=== PATIENT | male | born 1985 | race Native Hawaiian/Other Pacific Islander ===

== ENCOUNTER 2017-09-03 11:28 | Inpatient (IN) | payer OTHER ==
[~2017-09-03] VITALS: Ht 167.6 cm; Wt 74.5 kg
[2017-09-03 11:30] VITALS: BP 142/85; PULSE 93; RESP 14; TEMP 98.6; O2SAT 98
[2017-09-03] MEDS ORDERED: SODIUM CHLOR 0.9% 1000 ML INJ 1,000 ML IV ONE (12:09)
[2017-09-03] MEDS ORDERED: ONDANSETRON HCL 4 MG/2 ML VIAL IVP ONE (12:15)
[2017-09-03] MEDS ORDERED: MORPHINE SULFATE 4 MG/ML INJ IV PUSH ONE (12:15)
[2017-09-03] MEDS ORDERED: SODIUM CHLORIDE 0.9% FLUSH 10 ML FLUSH IVF PRN (12:15)
--- NOTE | 2017-09-03 12:16 | PD ---
HPI Chief Complaint: Syncope/Near-Syncope Time Seen by Provider: 11:59 Travel History International Travel<30 days: No Contact w/Intl Traveler<30days: No Traveled to known affect area: No History of Present Illness HPI 5-year-old male presents to the emergency department with complaint of right- sided headache, vomiting, neck pain after a syncopal episode at approximately 3 AM this morning. Cervical collar was placed in triage. Says he fell and hit the right side of his head and had continued loss of consciousness. Pain is left-sided. Has vomited 5 times. Reports right ear pain. Denies change in vision. Denies confusion, disorientation, change in mentation, slurred speech, focal deficits or weakness. Denies illicit drug use or alcohol use. Denies chest pain, shortness of breath, abdominal pain. Rates the pain 9/10. Describes it as a shooting pain. Has not taken any medication or trigon treatments to alleviate symptoms. No known relieving or aggravating factors. No known allergies. Primary care provider is in [facility]. Denies significant past medical history. Has no other medical complaints. No other modifying factors or associated signs and symptoms. [facility] Past Medical History Medical History: Denies Significant Hx Tetanus Vaccination: Unknown Influenza Vaccination: No Social History Alcohol Use: No Tobacco Use: No Substance Use: No Allergies-Medications (Allergen,Severity, Reaction): Coded Allergies: No Known Allergies (Unverified , 09/03/17) Reported Meds & Prescriptions Reported Meds & Active Scripts Active No Active Prescriptions or Reported Medications Review of Systems Except as stated in HPI: all other systems reviewed are Neg Physical Exam Narrative GENERAL: Well-nourished, well-developed male patient, in no acute distress SKIN: Warm and dry. HEAD: Atraumatic. Normocephalic. No facial or scalp abrasions or lacerations noted. No facial droop noted. Tetanus midline. Finger to nose test normal. EYES: Pupils equal and round at 3 mm with brisk reaction. EOMI. PERRLA. No scleral icterus. No injection or drainage. No raccoon eyes. ENT: Mucosa pink and moist. No erythema or exudates. No uvular edema. No uvular , palatal, or tonsillar deviation. Airway patent. Nares without nasal blood, purulent drainage or septal hematoma. No rhinorrhea. EARS: Bilateral pinnae and external canals appear within normal limits. Bilateral tympanic membranes without erythema, dullness, or perforation. Right hemotympanum noted; without perforation. No otorrhea. No guzman signs. NECK: Cervical collar in place: Remove for physical exam and discontinued. No midline tenderness on palpation of the cervical spine. Active rotation of the neck greater than 45 the left and right. Reproducible tenderness to the left lateral musculature of the neck. Trachea midline. No lymphadenopathy. No obvious deformities. CHEST: No retractions or use of accessory muscles. CARDIOVASCULAR: Regular rate and rhythm. No murmur appreciated. RESPIRATORY: No accessory muscle use. Clear to auscultation. Breath sounds equal bilaterally. GASTROINTESTINAL: Abdomen soft, non-tender, nondistended. Hepatic and splenic margins not palpable. Bowel sounds are active 4 quadrants. MUSCULOSKELETAL: No obvious deformities. No clubbing. No cyanosis. No edema. BACK: No midline Point tenderness on palpation of the lumbar or thoracic spine. No obvious deformities. Patient sitting up in bed at 90. NEUROLOGICAL: Awake and alert. Oriented 4. No obvious cranial nerve deficits. Motor grossly within normal limits. Normal speech. No midline drift. No ataxia. No upper or lower extremity drift. Moves all extremities. 5/5 strength to all extremities. Sensory intact. PSYCHIATRIC: Appropriate mood and affect; insight and judgment normal. Data Data Last Documented VS Vital Signs Date Time Temp Pulse Resp B/P (MAP) Pulse Ox O2 Delivery O2 Flow Rate FiO2 09/03/17 13:09 90 19 130/74 (92) 97 Room Air 09/03/17 11:30 98.6 Orders Orders Electrocardiogram (09/03/17 12:09) Basic Metabolic Panel (Bmp) (09/03/17 12:09) Complete Blood Count With Diff (09/03/17 12:09) Act Partial Throm Time (Ptt) (09/03/17 12:09) Prothrombin Time / Inr (Pt) (09/03/17 12:09) Ct Brain W/O Iv Contrast(Rout) (09/03/17 12:09) Ecg Monitoring (09/03/17 12:09) Iv Access Insert/Monitor (09/03/17 12:09) Oximetry (09/03/17 12:09) Sodium Chloride 0.9% Flush (Ns Flush) (09/03/17 12:15) Sodium Chlor 0.9% 1000 Ml Inj (Ns 1000 M (09/03/17 12:09) Ondansetron Inj (Zofran Inj) (09/03/17 12:15) Morphine Inj (Morphine Inj) (09/03/17 12:15) Drug Screen, Random Urine (09/03/17 14:19) Ct Cerv Spine W/O Contrast (09/03/17 ) Consult Neurosurgery (09/03/17 ) Admit Order (Ed Use Only) (09/03/17 14:49) Labs Laboratory Tests Test 09/03/17 12:30 White Blood Count 13.7 TH/MM3 Red Blood Count 5.25 MIL/MM3 Hemoglobin 13.0 GM/DL Hematocrit 40.1 % Mean Corpuscular Volume 76.4 FL Mean Corpuscular Hemoglobin 24.8 PG Mean Corpuscular Hemoglobin Concent 32.5 % Red Cell Distribution Width 14.4 % Platelet Count 338 TH/MM3 Mean Platelet Volume 6.8 FL Neutrophils (%) (Auto) 91.5 % Lymphocytes (%) (Auto) 3.4 % Monocytes (%) (Auto) 5.0 % Eosinophils (%) (Auto) 0.0 % Basophils (%) (Auto) 0.1 % Neutrophils # (Auto) 12.5 TH/MM3 Lymphocytes # (Auto) 0.5 TH/MM3 Monocytes # (Auto) 0.7 TH/MM3 Eosinophils # (Auto) 0.0 TH/MM3 Basophils # (Auto) 0.0 TH/MM3 CBC Comment DIFF FINAL Differential Comment Prothrombin Time 10.5 SEC Prothromb Time International Ratio 1.0 RATIO Activated Partial Thromboplast Time 24.6 SEC Blood Urea Nitrogen 11 MG/DL Creatinine 0.82 MG/DL Random Glucose 123 MG/DL Calcium Level 9.0 MG/DL Sodium Level 138 MEQ/L Potassium Level 4.3 MEQ/L Chloride Level 104 MEQ/L Carbon Dioxide Level 27.9 MEQ/L Anion Gap 6 MEQ/L Estimat Glomerular Filtration Rate 110 ML/MIN MDM Medical Decision Making Medical Screen Exam Complete: Yes Emergency Medical Condition: Yes Medical Record Reviewed: Yes Differential Diagnosis Basilar skull fracture, traumatic brain injury, closed head injury, syncope, electrolyte imbalance, arrhythmia Narrative Course 32-year-old male with syncopal episode and head injury. Neuro exam is unremarkable. Right-sided hemotympanums noted on physical exam; without perforation. I discussed the patient with Dr. Fonseca, my attending physician , and he agrees with my plan of care. Patient on cardiopulmonary monitor. IV site obtained. CT head, CBC, BMP, coags, EKG, morphine, Zofran ordered. 1240: EKG was normal sinus rhythm, without ST elevation or depression: Reviewed by Dr. Fonseca. 1405: CT head concludes: Head CT 09/03/17 1209 Signed Impressions: Service Date/Time: August 13:25 - CONCLUSION: 1. Small right temporal and occipital subdural hematoma. 2. Subtle right-sided skull fractures which are nondisplaced a small amount of subdural air. Small air- fluid level in the right mastoid air cells. Robert Manjarrez MD Call placed to neurosurgery. 1438: I spoke with Dr. Amanda and he recommended admit for observation to [facility], cervical spine CT, and tox screen. 1452: I spoke with Dr. Munguia, Front End Assistant and report was given for patient admission. Physician Communication Physician Communication Dr. Amanda, neurosurgeon; Dr. Munguia, Front End Assistant Diagnosis Primary Impression: Non-depressed skull fracture Qualified Codes: S02.91XA - Unspecified fracture of skull, initial encounter for closed fracture Additional Impression: Subdural hematoma Admitting Information Admitting Physician Requests: Observation Scripts No Active Prescriptions or Reported Meds Rianna Zamora Sep 03, 2017 12:16
[2017-09-03 12:50] LABS: AUTOMATED NEUTROPHIL # 12.5 TH/MM3 (1.8-7.7); BASOPHIL % 0.1 % (0.0-2.0); HEMATOCRIT 40.1 % (39.0-51.0); HEMO FLAGS DIFF FINAL; LYMPH % 3.4 % (9.0-44.0); LYMPHOCYTE # 0.5 TH/MM3 (1.0-4.8); MEAN CELL VOLUME 76.4 FL (80.0-100.0); MEAN CORPUSCULAR HEMOGLOBIN 24.8 PG (27.0-34.0); MEAN CORPUSCULAR HGB CONC 32.5 % (32.0-36.0); NEUT % 91.5 % (16.0-70.0); PLATELET COUNT 338 TH/MM3 (150-450); RED BLOOD COUNT 5.25 MIL/MM3 (4.50-5.90); RED CELL DISTRIBUTION WIDTH 14.4 % (11.6-17.2); WHITE BLOOD COUNT 13.7 TH/MM3 (4.0-11.0)
[2017-09-03 12:59] LABS: APTT (PATIENT) 24.6 SEC (24.3-30.1); PROTHROMBIN TIME - PATIENT 10.5 SEC (9.8-11.6)
[2017-09-03 13:05] LABS: BICARBONATE 27.9 MEQ/L (21.0-32.0); POTASSIUM 4.3 MEQ/L (3.5-5.1)
[2017-09-03 13:09] VITALS: BP 130/74; PULSE 90; RESP 19; O2SAT 97
--- NOTE | 2017-09-03 13:37 | RADRPT ---
EXAM DATE/TIME: 09/03/2017 13:25 [facility] COMPARISON: No previous studies available for comparison. INDICATIONS : Cephalgia after head trauma.. RADIATION DOSE: 29.22 CTDIvol (mGy) MEDICAL HISTORY : None SURGICAL HISTORY : None. ENCOUNTER: Initial ACUITY: 1 day PAIN SCALE: 0/10 LOCATION: cranial TECHNIQUE: Multiple contiguous axial images were obtained of the head. Using automated exposure control and adj ustment of the mA and/or kV according to patient size, radiation dose was kept as low as reasonably a chievable to obtain optimal diagnostic quality images. DICOM format image data is available electro nically for review and comparison. FINDINGS: There is a small subtle nondisplaced fracture involving the right parietal and occipital bone wi th small subtle area of subdural hemorrhage along the occipital and parietal lobes. This measures up to approximately 4 cm in length and 7 mm in greatest width. There are several small subdural gas jessica ections noted more laterally. There is a tiny air-fluid level in the right mastoid air cells with reagan arent small subtle nondisplaced fracture laterally. There is no mass effect or midline shift. The pos terior fossa is otherwise intact. The ventricular system is within normal limits. There is soft tissu e swelling over the left parietal bone. CONCLUSION: 1. Small right temporal and occipital subdural hematoma. 2. Subtle right-sided skull fractures which are nondisplaced a small amount of subdural air. Small ai r-fluid level in the right mastoid air cells. Robert Manjarrez MD on September 03, 2017 at 13:29 Board Certified Radiologist. This report was verified electronically.
--- NOTE | 2017-09-03 14:10 | PD ---
Physical Exam Narrative GENERAL: SKIN: Warm and dry. HEAD: Atraumatic. Normocephalic. EYES: Pupils equal and round. No scleral icterus. No injection or drainage. ENT: No nasal bleeding or discharge. Mucous membranes pink and moist....rt hemotympanum noted NECK: Trachea midline. No JVD. CARDIOVASCULAR: Regular rate and rhythm. RESPIRATORY: No accessory muscle use. Clear to auscultation. Breath sounds equal bilaterally. GASTROINTESTINAL: Abdomen soft, non-tender, nondistended. MUSCULOSKELETAL: Extremities without clubbing, cyanosis, or edema. No obvious deformities. NEUROLOGICAL: Awake and alert. No obvious cranial nerve deficits. Motor grossly within normal limits. Five out of 5 muscle strength in the arms and legs. Normal speech. PSYCHIATRIC: Appropriate mood and affect; insight and judgment normal. Data Data Last Documented VS Vital Signs Date Time Temp Pulse Resp B/P (MAP) Pulse Ox O2 Delivery O2 Flow Rate FiO2 09/03/17 13:09 90 19 130/74 (92) 97 Room Air 09/03/17 11:30 98.6 Orders Orders Electrocardiogram (09/03/17 12:09) Basic Metabolic Panel (Bmp) (09/03/17 12:09) Complete Blood Count With Diff (09/03/17 12:09) Act Partial Throm Time (Ptt) (09/03/17 12:09) Prothrombin Time / Inr (Pt) (09/03/17 12:09) Ct Brain W/O Iv Contrast(Rout) (09/03/17 12:09) Ecg Monitoring (09/03/17 12:09) Iv Access Insert/Monitor (09/03/17 12:09) Oximetry (09/03/17 12:09) Sodium Chloride 0.9% Flush (Ns Flush) (09/03/17 12:15) Sodium Chlor 0.9% 1000 Ml Inj (Ns 1000 M (09/03/17 12:09) Ondansetron Inj (Zofran Inj) (09/03/17 12:15) Morphine Inj (Morphine Inj) (09/03/17 12:15) Labs Laboratory Tests Test 09/03/17 12:30 White Blood Count 13.7 TH/MM3 Red Blood Count 5.25 MIL/MM3 Hemoglobin 13.0 GM/DL Hematocrit 40.1 % Mean Corpuscular Volume 76.4 FL Mean Corpuscular Hemoglobin 24.8 PG Mean Corpuscular Hemoglobin Concent 32.5 % Red Cell Distribution Width 14.4 % Platelet Count 338 TH/MM3 Mean Platelet Volume 6.8 FL Neutrophils (%) (Auto) 91.5 % Lymphocytes (%) (Auto) 3.4 % Monocytes (%) (Auto) 5.0 % Eosinophils (%) (Auto) 0.0 % Basophils (%) (Auto) 0.1 % Neutrophils # (Auto) 12.5 TH/MM3 Lymphocytes # (Auto) 0.5 TH/MM3 Monocytes # (Auto) 0.7 TH/MM3 Eosinophils # (Auto) 0.0 TH/MM3 Basophils # (Auto) 0.0 TH/MM3 CBC Comment DIFF FINAL Differential Comment Prothrombin Time 10.5 SEC Prothromb Time International Ratio 1.0 RATIO Activated Partial Thromboplast Time 24.6 SEC Blood Urea Nitrogen 11 MG/DL Creatinine 0.82 MG/DL Random Glucose 123 MG/DL Calcium Level 9.0 MG/DL Sodium Level 138 MEQ/L Potassium Level 4.3 MEQ/L Chloride Level 104 MEQ/L Carbon Dioxide Level 27.9 MEQ/L Anion Gap 6 MEQ/L Estimat Glomerular Filtration Rate 110 ML/MIN MDM Medical Record Reviewed: Yes Supervised Visit with ERNESTO: Yes Narrative Course patient denies any fight or trauma, and states that he simply was on his way to bathroom when he passed out and does not recall anything until after he came to. Critical Care Narrative CRITICAL CARE NOTE: With evaluation of the patient, labs, EKG, receipt of radiologic studies, administration of medications, reevaluation the patient and discussion of the patient with the admitting physicians, the total critical care time was [30] minutes. Time to perform other separately billable procedures was not included in the critical care time. Physician Communication Physician Communication called dr westfall and discussed observation, currently has no additional request/ recommendations Diagnosis Primary Impression: Subdural hematoma Additional Impression: Non-depressed skull fracture Qualified Codes: S02.91XA - Unspecified fracture of skull, initial encounter for closed fracture Admitting Information Admitting Physician Requests: Observation Scripts No Active Prescriptions or Reported Meds Erick Fonseca MD Sep 03, 2017 14:10
[2017-09-03] MEDS ORDERED: SODIUM CHLORIDE 0.9% FLUSH 10 ML FLUSH IV FLUSH PRN (15:00)
[2017-09-03] MEDS ORDERED: ONDANSETRON HCL 4 MG/2 ML VIAL IV PUSH PRN (15:00)
[2017-09-03] MEDS ORDERED: MISCELLANEOUS NURSING INFORMATION XX SCH (15:00)
[2017-09-03] MEDS ORDERED: ACETAMINOPHEN 325 MG TAB PO PRN (15:00)
[2017-09-03] MEDS ORDERED: CHLORHEXIDINE GLUCONATE 2 % 1 PACK (2 CLOTHS) TOP PRN (15:00)
--- NOTE | 2017-09-03 15:14 | HHI.HP ---
HPI Service Critical Care Medicine Primary Care Physician No Primary Care Physician Admission Diagnosis syncope and collapse, traumatic subdural hematoma, skull fracture Diagnosis: Chief Complaint: Headache Travel History International Travel<30 Days: No Contact w/Intl Traveler <30 Da: No Traveled to Known Affected Are: No History of Present Illness 32 year old man with syncope and collapse received blunt trauma to his right occiput. LOC, ? time. Incident occurred about 12 hours ago. Recurrent vomiting since event. No seizures. Severe headache pain. Review of Systems Constitutional: DENIES: Diaphoretic episodes, Fatigue, Fever, Weight gain, Weight loss, Chills, Dizziness, Change in appetite, Night Sweats Endocrine: DENIES: Heat/cold intolerance, Polydipsia, Polyuria, Polyphagia Eyes: DENIES: Blurred vision, Diplopia, Eye inflammation, Eye pain, Vision loss , Photosensitivity, Double Vision Ears, nose, mouth, throat: COMPLAINS OF: Ear Pain Respiratory: DENIES: Apneas, Cough, Snoring, Wheezing, Hemoptysis, Sputum production, Shortness of breath Cardiovascular: DENIES: Chest pain, Palpitations, Syncope, Dyspnea on Exertion , PND, Lower Extremity Edema, Orthopnea, Claudication Gastrointestinal: COMPLAINS OF: Vomiting Genitourinary: DENIES: Sexual dysfunction, Urinary frequency, Urinary incontinence, Urgency, Hematuria, Dysuria, Nocturia, Penile Discharge, Testicular Pain, Testicular Swelling Musculoskeletal: DENIES: Joint pain, Muscle aches, Stiffness, Joint Swelling, Back pain, Neck pain Integumentary: DENIES: Abnormal pigmentation, Nail changes, Pruritus, Rash Immunologic/allergic: DENIES: Eczema, Urticaria Neurologic: COMPLAINS OF: Headache Past Family Social History Allergies: Coded Allergies: No Known Allergies (Unverified , 09/03/17) Physical Exam Vital Signs Vital Signs Date Time Temp Pulse Resp B/P (MAP) Pulse Ox O2 Delivery O2 Flow Rate FiO2 09/03/17 13:09 90 19 130/74 (92) 97 Room Air 09/03/17 11:38 18 Room Air 09/03/17 11:30 98.6 93 14 142/85 (104) 98 Physical Exam Gen: Ill-appearing. Head: Hematoma right occiput, scalp. Neck: Supple, airway widely patent. Lungs: Clear, no adventitious sounds. Heart: NL S1S2, RRR Abdomen: Benign, soft. Extremities: Warm, well perfused. Neuro: O X 3, alert, cooperative, speech clear. M/S grossly intact. Laboratory Laboratory Tests Test 09/03/17 12:30 White Blood Count 13.7 Red Blood Count 5.25 Hemoglobin 13.0 Hematocrit 40.1 Mean Corpuscular Volume 76.4 Mean Corpuscular Hemoglobin 24.8 Mean Corpuscular Hemoglobin Concent 32.5 Red Cell Distribution Width 14.4 Platelet Count 338 Mean Platelet Volume 6.8 Neutrophils (%) (Auto) 91.5 Lymphocytes (%) (Auto) 3.4 Monocytes (%) (Auto) 5.0 Eosinophils (%) (Auto) 0.0 Basophils (%) (Auto) 0.1 Neutrophils # (Auto) 12.5 Lymphocytes # (Auto) 0.5 Monocytes # (Auto) 0.7 Eosinophils # (Auto) 0.0 Basophils # (Auto) 0.0 CBC Comment DIFF FINAL Differential Comment Prothrombin Time 10.5 Prothromb Time International Ratio 1.0 Activated Partial Thromboplast Time 24.6 Blood Urea Nitrogen 11 Creatinine 0.82 Random Glucose 123 Calcium Level 9.0 Sodium Level 138 Potassium Level 4.3 Chloride Level 104 Carbon Dioxide Level 27.9 Anion Gap 6 Estimat Glomerular Filtration Rate 110 Result Diagram: 09/03/17 1230 09/03/17 1230 Caprini VTE Risk Assessment Caprini VTE Risk Assessment: No/Low Risk (score <= 1) Caprini Risk Assessment Model Point Value = 1 Point Value = 2 Point Value = 3 Point Value = 5 Age 41-60 Minor surgery BMI > 25 kg/m2 Swollen legs Varicose veins or History of unexplained or recurrent spontaneous Oral contraceptives or hormone replacement Sepsis (< 1 month) Serious lung disease, including pneumonia (< 1 month) Abnormal pulmonary function Acute myocardial infarction Congestive heart failure (< 1 month) History of inflammatory bowel disease Medical patient at bed rest Age 61-74 Arthroscopic surgery Major open surgery (> 45 min) Laparoscopic surgery (> 45 min) Malignancy Confined to bed (> 72 hours) Immobilizing plaster cast Central venous access Age >= 75 History of VTE Family history of VTE Factor V Leiden Prothrombin [id number] Lupus anticoagulant Anticardiolipin antibodies Elevated serum homocysteine Heparin-induced thrombocytopenia Other congenital or acquired thrombophilia Stroke (< 1 month) Elective arthroplasty Hip, pelvis, or leg fracture Acute spinal cord injury (< 1 month) Prophylaxis Regimen Total Risk Factor Score Risk Level Prophylaxis Regimen 0-1 Low Early ambulation 2 Moderate Order ONE of the following: *Sequential Compression Device (SCD) *Heparin 5000 units SQ BID 3-4 Higher Order ONE of the following medications: *Heparin 5000 units SQ TID *Enoxaparin/Lovenox 40 mg SQ daily (WT < 150 kg, CrCl > 30 mL/min) *Enoxaparin/Lovenox 30 mg SQ daily (WT < 150 kg, CrCl > 10-29 mL/min) *Enoxaparin/Lovenox 30 mg SQ BID (WT < 150 kg, CrCl > 30 mL/min) AND/OR *Sequential Compression Device (SCD) 5 or more Highest Order ONE of the following medications: *Heparin 5000 units SQ TID (Preferred with Epidurals) *Enoxaparin/Lovenox 40 mg SQ daily (WT < 150 kg, CrCl > 30 mL/min) *Enoxaparin/Lovenox 30 mg SQ daily (WT < 150 kg, CrCl > 10-29 mL/min) *Enoxaparin/Lovenox 30 mg SQ BID (WT < 150 kg, CrCl > 30 mL/min) AND *Sequential Compression Device (SCD) Assessment and Plan Problem List: (1) Traumatic subdural hematoma ICD Code: S06.5X9A - Traumatic subdural hemorrhage with loss of consciousness of unspecified duration, initial encounter Status: Acute (2) Syncope and collapse ICD Code: R55 - Syncope and collapse Status: Acute (3) Non-depressed skull fracture ICD Code: S02.91XA - Unspecified fracture of skull, initial encounter for closed fracture Status: Acute Assessment and Plan Plan: 1. Admit ISC. 2. Neuro checks. 3. Maintenance iv fluid, isotonic. 4. Seizure precautions. 5. Repeats CT for mental status change. 6. No chemical DVT prophylaxis. 7. SCDs. 8. Pepcid. Overall impression: Patient has received moderate-severe blunt occipital trauma with skull fracture and subdural hemorrhage. Problem Qualifiers (1) Traumatic subdural hematoma: Qualified Codes: S06.5X0A - Traumatic subdural hemorrhage without loss of consciousness, initial encounter (2) Non-depressed skull fracture: Qualified Codes: S02.91XA - Unspecified fracture of skull, initial encounter for closed fracture Mayank Munguia MD Sep 03, 2017 15:14
--- NOTE | 2017-09-03 15:15 | RADRPT ---
EXAM DATE/TIME: 09/03/2017 14:35 [facility] COMPARISON: CT BRAIN W/O CONTRAST, September 03, 2017, 13:25. INDICATIONS : Neck pain due to fall. Skull fractures and subdural hematoma. RADIATION DOSE: 22.47 CTDIvol (mGy) MEDICAL HISTORY : None SURGICAL HISTORY : Back sx. ENCOUNTER: Initial ACUITY: 1 day PAIN SCALE: 9/10 LOCATION: Bilateral cranial TECHNIQUE: Volumetric scanning of the cervical spine was performed. Multiplanar reconstructions i n the sagittal, coronal and oblique axial planes were performed. Using automated exposure control a nd adjustment of the mA and/or kV according to patient size, radiation dose was kept as low as reason ably achievable to obtain optimal diagnostic quality images. DICOM format image data is available e lectronically for review and comparison. FINDINGS: The sagittal reconstructions demonstrate normal alignment and normal prevertebral soft tissues. The d ens is intact and there is a normal atlantoaxial relationship. The axial images demonstrate that the vertebral bodies and posterior elements are intact. The soft ti ssues are within normal limits. There is no evidence of acute fracture or malalignment. The known rig ht subdural hematoma and right-sided fractures is again visualized. CONCLUSION: The cervical spine is intact with no evidence of fracture or malalignment. Robert Manjarrez MD on September 03, 2017 at 15:11 Board Certified Radiologist. This report was verified electronically.
[2017-09-03 15:24] VITALS: BP 123/72
[2017-09-03 16:00] VITALS: BP 128/73; PULSE 68; RESP 17; TEMP 98.6; O2SAT 98
[2017-09-03] MEDS: PANTOPRAZOLE SODIUM 40 MG VIAL IV PUSH SCH (16:28)
[2017-09-03] MEDS: SODIUM CHLOR 0.9% 1000 ML INJ 1,000 ML IV SCH (16:28)
[2017-09-03] MEDS: SODIUM CHLORIDE 0.9% FLUSH 10 ML FLUSH IV FLUSH SCH ×2 (16:29→20:08)
[2017-09-03] MEDS: MORPHINE SULFATE 4 MG/ML INJ IV PUSH PRN ×2 (16:29→19:40)
[2017-09-03] MEDS ORDERED: ALUMINUM/MAGNESIUM/SIMETH 30 ML CUP PO PRN (17:00)
[2017-09-03] MEDS ORDERED: LABETALOL HCL 100 MG/20 ML VIAL IV PUSH PRN (17:00)
[2017-09-03] MEDS ORDERED: cloNIDine HCL 0.1 MG TAB PO PRN (17:00)
[2017-09-03] MEDS ORDERED: LORazepam 2 MG/ML VIAL IV PUSH PRN (17:00)
[2017-09-03] MEDS ORDERED: MAGNESIUM HYDROXIDE SUSP 30 ML CUP PO PRN (17:00)
[2017-09-03] MEDS ORDERED: PROMETHAZINE INJ 25 MG/ML VIAL IM PRN (17:00)
--- NOTE | 2017-09-03 17:20 | MB ---
cc: CONNIE PENYN M.D. DATE OF CONSULTATION: 09/03/2017 REASON FOR CONSULTATION: Closed head injury. PRESENT ILLNESS 32-year-old gentleman who had reportedly a syncopal episode around 3 o'clock this morning when his in the bathroom and fell back and struck his head with positive loss of consciousness. Initially had complaints of had severe headaches and nausea and vomiting, although he relates at this point the headaches have improved and he is does not feel nauseous. Denies any numbness or paresthesias in the upper or lower extremities. No double vision or blurred vision. Was brought to [facility] and CT scan the head obtained reveals a right parietal occipital area of 7 mm of thickness of the subdural hemorrhage. There is also nondisplaced parietooccipital skull fracture noted. CT of the cervical spine does not reveal any fractures with maintained alignment. PAST MEDICAL HISTORY Unremarkable. Denies any previous episodes syncope. MEDICATIONS None. ALLERGIES NO KNOWN DRUG ALLERGIES SOCIAL HISTORY Denies any alcohol or tobacco use. He is . FAMILY HISTORY Unremarkable. LABORATORY FINDINGS White blood count 13.7, hemoglobin 13, platelet count 338, PT 10.5, INR 1, PTT 24.6, sodium 138, potassium 4.3, BUN 11, creatinine 0.82, glucose 123. REVIEW OF SYSTEMS Complains of headache. Initially had some nausea and vomiting but this has resolved. He had some neck discomfort which has also improved. Denies any numbness or paresthesias in the upper extremities. No low back pain. No double vision or blurred vision. No fevers or chills. No recent weight gain or weight loss. No history of easy bleeding or bruising. No incontinence. No seizure activity, otherwise review of systems is negative. PHYSICAL EXAMINATION GENERAL: This gentleman who is lying in bed sleeping and in no acute distress. VITAL SIGNS: Temperature 98.6, pulse is 62, respiratory 16, blood pressure 123/72, oxygen saturation 96% on room air. HEAD, EYES, EARS, NOSE, AND THROAT: Head: He has right occipital the soft tissue swelling but no abrasions, no Keene's or raccoon sign. NECK: Neck is supple with good range of motion with no guarding or rigidity. CHEST: Clear to auscultation bilaterally. HEART: Regular rate rhythm, normal S1-S2. No murmurs. ABDOMEN: Soft, nontender, no hepatosplenomegaly or tenderness. EXTREMITIES: No deformities, cyanosis or edema. SKIN: No rash or abrasions noted. NEUROLOGIC: He is sleeping but easily arousable and states his name, knows he is in the hospital, the month and year. Pupils equal, reactive. Extra muscles are intact. Face symmetric tongue is midline moves upper and lower extremities 5/5 strength. Negative Babinski. Light touch sensation intact. Speech is fluent. IMPRESSION 1. No mild traumatic brain injury with a small right parietal occipital subdural hemorrhage with associated with linear nondisplaced skull fracture. 2. A syncopal episode. PLAN The patient will be monitored closely in the surgical intensive care unit. The head of bed will kept elevated 30 degrees. Sequential compression device was used for DVT prophylaxis along with gastrointestinal stress ulcer prophylaxis. A Syncope workup as per the medical service. A follow up CT scan of the head will be obtained tomorrow morning to rule out any progression of this small subdural hemorrhage. His diet and activity status can be increased as tolerated. MD DAINA Hammer/grayson /5:00 PM /5:11 PM
[2017-09-03 20:00] VITALS: BP 118/68; PULSE 56; RESP 18; TEMP 98.4; O2SAT 95
[2017-09-03] MEDS: DOCUSATE SODIUM 100 MG CAP PO SCH (20:08)
[2017-09-03] MEDS: oxyCODONE/ACETAMINOPHEN 5 MG/325 MG TAB PO PRN (21:17)
[2017-09-03 22:00] VITALS: PULSE 52
[2017-09-04] VITALS (13 sets, daily range): BP systolic 115–127; BP diastolic 60–78; PULSE 50–86; RESP 13–19; TEMP 98–98.7; O2SAT 95–99
[2017-09-04] MEDS: CHLORHEXIDINE GLUCONATE 2 % 1 PACK (2 CLOTHS) TOP SCH ×2 (00:25→22:37)
[2017-09-04] MEDS: oxyCODONE/ACETAMINOPHEN 5 MG/325 MG TAB PO PRN ×4 (01:34→20:51)
[2017-09-04] MEDS: SODIUM CHLOR 0.9% 1000 ML INJ 1,000 ML IV SCH ×2 (04:54→17:36)
--- NOTE | 2017-09-04 04:55 | RADRPT ---
EXAM DATE/TIME: 09/04/2017 04:27 [facility] COMPARISON: CT BRAIN W/O CONTRAST, September 03, 2017, 13:25. INDICATIONS : Follow up subdural hematoma. RADIATION DOSE: 56.35 CTDIvol (mGy) MEDICAL HISTORY : None SURGICAL HISTORY : None. ENCOUNTER: Subsequent ACUITY: 2 days PAIN SCALE: 0/10 LOCATION: cranial TECHNIQUE: Multiple contiguous axial images were obtained of the head. Using automated exposure control and adj ustment of the mA and/or kV according to patient size, radiation dose was kept as low as reasonably a chievable to obtain optimal diagnostic quality images. DICOM format image data is available electro nically for review and comparison. FINDINGS: There is an oblique nondisplaced fracture through the right parietal and occipital bone with question able nondisplaced fracture of the right temporal bone extending through the right mastoid air cells. However, no fluid is present in the right mastoid air cells. There is a right occipital and parietal subdural hematoma measuring up to a maximal thickness of 6 mm. There is minimal subdural air. Ventric les are normal. No midline shift is present. No herniation is present. No infarct or mass is identifi ed. CONCLUSION: Stable head CT with nondisplaced right skull fractures with small right parietal and occipital subdur al hematoma measuring up to a maximal thickness of 6 mm. Arcadio Knox MD on September 04, 2017 at 4:50 Board Certified Radiologist. This report was verified electronically.
[2017-09-04 06:21] LABS: BICARBONATE 29.3 MEQ/L (21.0-32.0); MAGNESIUM 1.9 MG/DL (1.5-2.5); POTASSIUM 3.8 MEQ/L (3.5-5.1)
[2017-09-04] MEDS: DOCUSATE SODIUM 100 MG CAP PO SCH ×2 (08:28→20:51)
[2017-09-04] MEDS: SODIUM CHLORIDE 0.9% FLUSH 10 ML FLUSH IV FLUSH SCH ×2 (08:29→20:52)
[2017-09-04] MEDS: PANTOPRAZOLE SODIUM 40 MG VIAL IV PUSH SCH (08:29)
--- NOTE | 2017-09-04 08:56 | HHI.NSPN ---
(Cody Simmons) History Chief Complaint: Occipital headache. (Cody Simmons) Interval History 32-year-old gentleman who had reportedly a syncopal episode around 3 o'clock this morning when his in the bathroom and fell back and struck his head with positive loss of consciousness. Initially had complaints of had severe headaches and nausea and vomiting, although he relates at this point the headaches have improved and he is does not feel nauseous. Denies any numbness or paresthesias in the upper or lower extremities. No double vision or blurred vision. Was brought to [facility] and CT scan the head obtained reveals a right parietal occipital area of 7 mm of thickness of the subdural hemorrhage. There is also nondisplaced parietooccipital skull fracture noted. CT of the cervical spine does not reveal any fractures with maintained alignment. 09/04/17: Pt awake and alert. Complains of posterior headache. No n/v. No paresthesias. No weakness in extremities. (Cody Simmons) Review of Systems General: Negative for: fever, chills, insomnia Respiratory: Negative for: shortness of breath, cough, sputum Cardiovascular: Negative for: chest pain Gastrointestinal: Negative for: nausea, vomitting, diarrhea, constipation ( Cody Simmons) Exam Results Vital Signs Date Time Temp Pulse Resp B/P (MAP) Pulse Ox O2 Delivery O2 Flow Rate FiO2 09/04/17 07:00 96 Room Air 09/04/17 06:00 50 09/04/17 04:00 98.4 17 119/69 (86) Intake and Output 09/04/17 09/04/17 09/05/17 08:00 16:00 00:00 Intake Total 1216 ml Balance 1216 ml (Cody Simmons) Physical Examination General: Pt resting in bed in NAD with stable vital signs. Eyes: Pupils equal 3mm bilaterally. Sclera anicteric. Resp: CTA bilaterally Heart: NSR no murmurs Abd: Soft positive bs Skin: No cyanosis or erythema Muscle: Moves all 4 extremities with good strength. Neuro: Pt awake and alert. Pupils equal. Face symmetric. Speech clear and appropriate. (Cody Simmons) Lab, Micro, Other Results Last Impressions Head CT 09/04/17 0600 Signed Impressions: Service Date/Time: Monday, September 04, 2017 04:27 - CONCLUSION: Stable head CT with nondisplaced right skull fractures with small right parietal and occipital subdural hematoma measuring up to a maximal thickness of 6 mm. Arcadio Knox MD Cervical Spine CT 09/03/17 0000 Signed Impressions: Service Date/Time: August 14:35 - CONCLUSION: The cervical spine is intact with no evidence of fracture or malalignment. Robert Manjarrez MD Laboratory Tests Test 09/03/17 12:30 09/03/17 16:20 09/04/17 05:03 White Blood Count 13.7 TH/MM3 Red Blood Count 5.25 MIL/MM3 Hemoglobin 13.0 GM/DL Hematocrit 40.1 % Mean Corpuscular Volume 76.4 FL Mean Corpuscular Hemoglobin 24.8 PG Mean Corpuscular Hemoglobin Concent 32.5 % Red Cell Distribution Width 14.4 % Platelet Count 338 TH/MM3 Mean Platelet Volume 6.8 FL Neutrophils (%) (Auto) 91.5 % Lymphocytes (%) (Auto) 3.4 % Monocytes (%) (Auto) 5.0 % Eosinophils (%) (Auto) 0.0 % Basophils (%) (Auto) 0.1 % Neutrophils # (Auto) 12.5 TH/MM3 Lymphocytes # (Auto) 0.5 TH/MM3 Monocytes # (Auto) 0.7 TH/MM3 Eosinophils # (Auto) 0.0 TH/MM3 Basophils # (Auto) 0.0 TH/MM3 CBC Comment DIFF FINAL Differential Comment Prothrombin Time 10.5 SEC Prothromb Time International Ratio 1.0 RATIO Activated Partial Thromboplast Time 24.6 SEC Blood Urea Nitrogen 11 MG/DL 7 MG/DL Creatinine 0.82 MG/DL 0.85 MG/DL Random Glucose 123 MG/DL 99 MG/DL Calcium Level 9.0 MG/DL 8.5 MG/DL Sodium Level 138 MEQ/L 140 MEQ/L Potassium Level 4.3 MEQ/L 3.8 MEQ/L Chloride Level 104 MEQ/L 106 MEQ/L Carbon Dioxide Level 27.9 MEQ/L 29.3 MEQ/L Anion Gap 6 MEQ/L 5 MEQ/L Estimat Glomerular Filtration Rate 110 ML/MIN 106 ML/MIN Nasal Screen MRSA (PCR) MRSA NOT DETECTED Magnesium Level 1.9 MG/DL (Cody Simmons) Medical Decision Making Impression and Plan A: 32 y/o M with mild traumatic brain injury with a small right parietal occipital subdural hemorrhage with associated with linear nondisplaced skull fracture. Stable follow up CT head. 2. A syncopal episode. PLAN Continue with Neuro checks Continue with rehab efforts. Continue with medical management and monitoring. (Cody Simmons) Attending Statement The exam, history, and the medical decision-making described in the above note were completed with the assistance of the mid-level provider. I reviewed and agree with the findings presented. I attest that I had a [id number] encounter with the patient on the same day, and personally performed and documented my assessment and findings in the medical record. Headache is better and tolerated breakfast. Was out of bed walking and went to the bathroom per nursing staff. Follow-up CT scan of the head stable. Can transfer for anticipated discharge in the next day or so if stable. Follow-up in [address] scan the head. (Hernan Amanda MD) Cody Simmons Sep 04, 2017 08:56 Hernan Amanda MD Sep 04, 2017 14:46
--- NOTE | 2017-09-04 14:40 | HHI.CCPN ---
Subjective Remarks/Hospital Course 32 year old man with syncope and collapse received blunt trauma to his right occiput. LOC, ? time. Incident occurred about 12 hours ago. Recurrent vomiting since event. No seizures. Severe headache pain. Syncopal episode occurred at middle of night after he consumed Tylenol PM. Tox screen negative. No suspicion of seizures as etiology. 09/04: Neuro status normal. CT head without change. M/S intact. No arrhythmias. Bradycardia to 51 while sleeping. Objective Vital Signs Date Time Temp Pulse Resp B/P (MAP) Pulse Ox O2 Delivery O2 Flow Rate FiO2 09/04/17 14:00 61 09/04/17 12:00 98.2 13 124/65 (84) 95 09/04/17 09:46 21 09/04/17 07:00 Room Air Intake and Output 09/04/17 09/04/17 09/05/17 08:00 16:00 00:00 Intake Total 1216 ml Balance 1216 ml Result Diagram: 09/03/17 1230 09/04/17 0503 Objective Remarks Gen: Ill-appearing. Head: Hematoma right occiput, scalp. Neck: Supple, airway widely patent. Lungs: Clear, no adventitious sounds. Heart: NL S1S2, RRR Abdomen: Benign, soft. Extremities: Warm, well perfused. Neuro: O X 3, alert, cooperative, speech clear. M/S grossly intact. Good memory. A/P Problem List: (1) Traumatic subdural hematoma ICD Code: S06.5X9A - Traumatic subdural hemorrhage with loss of consciousness of unspecified duration, initial encounter Status: Acute (2) Syncope and collapse ICD Code: R55 - Syncope and collapse Status: Acute (3) Non-depressed skull fracture ICD Code: S02.91XA - Unspecified fracture of skull, initial encounter for closed fracture Status: Acute Assessment and Plan Plan: 1. Transfer to monitor floor. 2. Neuro checks. 3. Maintenance iv fluid, isotonic. 4. Seizure precautions. 5. Repeats CT for mental status change. 6. No chemical DVT prophylaxis. 7. SCDs. 8. Pepcid. Overall impression: Patient has received moderate-severe blunt occipital trauma with skull fracture and subdural hemorrhage. Syncope probably initiated after cold medication. Cardiac rhythm normal. Bradycardia to 51 when sleeping. Continue tele monitoring. Problem Qualifiers (1) Traumatic subdural hematoma: Qualified Codes: S06.5X0A - Traumatic subdural hemorrhage without loss of consciousness, initial encounter (2) Non-depressed skull fracture: Qualified Codes: S02.91XA - Unspecified fracture of skull, initial encounter for closed fracture Mayank Munguia MD Sep 04, 2017 14:40
--- NOTE | 2017-09-04 16:09 | EKG ---
Date Performed: 09/03/2017 Time Performed: 12:25:05 PTAGE: 32 years EKG: Sinus rhythm NONSPECIFIC T-WAVE ABNORMALITY BORDERLINE ECG NO PREVIOUS TRACING DOCTOR: Carol Ann Toney Interpretating Date/Time 09/04/2017 16:09:02
[2017-09-05] VITALS (9 sets, daily range): BP systolic 114–135; BP diastolic 57–70; PULSE 47–82; RESP 18–20; TEMP 97.9–99.3; O2SAT 95–97
[2017-09-05] MEDS: oxyCODONE/ACETAMINOPHEN 5 MG/325 MG TAB PO PRN ×3 (02:31→18:32)
[2017-09-05] MEDS: SODIUM CHLOR 0.9% 1000 ML INJ 1,000 ML IV SCH ×2 (06:19→14:33)
[2017-09-05] MEDS: DOCUSATE SODIUM 100 MG CAP PO SCH ×2 (08:23→21:00)
[2017-09-05] MEDS: PANTOPRAZOLE SODIUM 40 MG VIAL IV PUSH SCH (08:23)
[2017-09-05] MEDS: SODIUM CHLORIDE 0.9% FLUSH 10 ML FLUSH IV FLUSH SCH ×2 (09:00→21:00)
--- NOTE | 2017-09-05 10:33 | HHI.PR ---
Subjective Remarks Patient denies any headache. Discussed with RN and I reviewed his telemetry. Frequent episodes of bradycardia in the low 40s. He denies lightheadedness. Still have a mild headache. Further history obtained from the patient. He states that he was not sleeping for days and he woke up in the middle of the night, that's when he had the syncopal episode and striking the back of his head. Objective Vitals Vital Signs Date Time Temp Pulse Resp B/P (MAP) Pulse Ox O2 Delivery O2 Flow Rate FiO2 09/05/17 09:06 97.9 57 20 134/64 (87) 97 09/05/17 05:03 98.3 57 18 114/57 (76) 95 09/05/17 01:35 98.4 68 18 135/70 (91) 97 09/04/17 22:37 20 09/04/17 22:00 50 09/04/17 20:00 98.3 69 16 115/60 (78) 99 09/04/17 20:00 69 09/04/17 19:00 99 Room Air 09/04/17 18:00 86 09/04/17 16:00 57 09/04/17 16:00 98.7 57 17 117/63 (81) 97 09/04/17 14:00 61 09/04/17 12:00 68 09/04/17 12:00 98.2 68 13 124/65 (84) 95 I/O 09/04/17 09/04/17 09/04/17 09/05/17 09/05/17 09/05/17 07:00 15:00 23:00 07:00 15:00 23:00 Intake Total 1216 ml 760 ml 1236 ml 1000 ml Balance 1216 ml 760 ml 1236 ml 1000 ml Intake Oral 120 ml 760 ml 300 ml IV Total 1096 ml 936 ml 1000 ml # Voids 1 2 1 # Bowel Movements 0 0 Result Diagram: 09/03/17 1230 09/04/17 0503 Imaging Last Impressions Head CT 09/04/17 0600 Signed Impressions: Service Date/Time: Monday, September 04, 2017 04:27 - CONCLUSION: Stable head CT with nondisplaced right skull fractures with small right parietal and occipital subdural hematoma measuring up to a maximal thickness of 6 mm. Arcadio Knox MD Cervical Spine CT 09/03/17 0000 Signed Impressions: Service Date/Time: August 14:35 - CONCLUSION: The cervical spine is intact with no evidence of fracture or malalignment. Robert Manjarrez MD Objective Remarks GENERAL: This is a well-nourished, well-developed patient, in no apparent distress. HEENT: Mild tenderness to palpation over the parietal region on the right. CARDIOVASCULAR: Normal rate and regular rhythm without murmurs, gallops, or rubs. RESPIRATORY: Good respiratory efforts. Breath sounds equal and clear to auscultation bilaterally. GASTROINTESTINAL: Abdomen soft, non-tender, non-distended. Normal active bowel sounds MUSCULOSKELETAL: Extremities without cyanosis, or edema. NEURO: Alert & Oriented x4 to person, place, time, situation. Moves all ext x4 PSYCH: Appropriate mood and affect. A/P Problem List: (1) Syncope and collapse ICD Code: R55 - Syncope and collapse Status: Acute (2) Non-depressed skull fracture ICD Code: S02.91XA - Unspecified fracture of skull, initial encounter for closed fracture Status: Acute (3) Subdural hematoma ICD Code: I62.00 - Nontraumatic subdural hemorrhage, unspecified Status: Acute (4) Traumatic subdural hematoma ICD Code: S06.5X9A - Traumatic subdural hemorrhage with loss of consciousness of unspecified duration, initial encounter Status: Acute Assessment and Plan 32-year-old male admitted after a syncopal episode. He sustained a nondisplaced skull fracture and a subdural hematoma. Syncope and collapse: Per patient, he is not sleeping for days because of studying for exams. He woke up in the middle of the night, felt dizzy, and lost consciousness. - Telemetry reviewed. He has been bradycardic in the 40s.<1 second pauses. - Will consult cardiology to assist with evaluation of bradycardia and syncope. Nondepressed skull fracture/subdural hematoma - Patient has been followed by neurosurgery. Repeat head CT and neurological exam has been stable. - Cleared from neurosurgical standpoint for discharge. - Pain control Discharge Planning Awaiting further evaluation by cardiology for syncope. May be discharged once cleared by cardiology. Problem Qualifiers (1) Non-depressed skull fracture: Qualified Codes: S02.91XA - Unspecified fracture of skull, initial encounter for closed fracture (2) Traumatic subdural hematoma: Qualified Codes: S06.5X0A - Traumatic subdural hemorrhage without loss of consciousness, initial encounter Chuyita Leyva MD Sep 05, 2017 10:33
--- NOTE | 2017-09-05 11:31 | HHI.NSPN ---
(Nika Garrido) Note Status Status: Progress Note (Nika Garrido) Interval History Interval History 32-year-old gentleman who had reportedly a syncopal episode around 3 o'clock this morning when his in the bathroom and fell back and struck his head with positive loss of consciousness. Initially had complaints of had severe headaches and nausea and vomiting, although he relates at this point the headaches have improved and he is does not feel nauseous. Denies any numbness or paresthesias in the upper or lower extremities. No double vision or blurred vision. Was brought to [facility] and CT scan the head obtained reveals a right parietal occipital area of 7 mm of thickness of the subdural hemorrhage. There is also nondisplaced parietooccipital skull fracture noted. CT of the cervical spine does not reveal any fractures with maintained alignment. 09/04/17: Pt awake and alert. Complains of posterior headache. No n/v. No paresthesias. No weakness in extremities. 09/05/17: feeling well, stable mild headaches, no N/V, no new neuro complaints. requests to go home. (Nika Garrido) Labs, Micro, & Vital Signs Results Date Time Temp Pulse Resp B/P (MAP) Pulse Ox O2 Delivery O2 Flow Rate FiO2 09/05/17 09:06 97.9 57 20 134/64 (87) 97 09/05/17 08:15 Room Air 09/05/17 07:31 47 09/05/17 05:03 98.3 57 18 114/57 (76) 95 09/05/17 01:35 98.4 68 18 135/70 (91) 97 09/04/17 22:37 20 09/04/17 22:00 50 09/04/17 20:00 98.3 69 16 115/60 (78) 99 09/04/17 20:00 69 09/04/17 19:00 99 Room Air 09/04/17 18:00 86 09/04/17 16:00 57 09/04/17 16:00 98.7 57 17 117/63 (81) 97 09/04/17 14:00 61 09/04/17 12:00 68 09/04/17 12:00 98.2 68 13 124/65 (84) 95 Constitutional Vital Signs Date Time Temp Pulse Resp B/P (MAP) Pulse Ox O2 Delivery O2 Flow Rate FiO2 09/05/17 09:06 97.9 57 20 134/64 (87) 97 09/05/17 08:15 Room Air 09/05/17 07:31 47 09/05/17 05:03 98.3 57 18 114/57 (76) 95 09/05/17 01:35 98.4 68 18 135/70 (91) 97 09/04/17 22:37 20 09/04/17 22:00 50 09/04/17 20:00 98.3 69 16 115/60 (78) 99 09/04/17 20:00 69 09/04/17 19:00 99 Room Air 09/04/17 18:00 86 09/04/17 16:00 57 09/04/17 16:00 98.7 57 17 117/63 (81) 97 09/04/17 14:00 61 09/04/17 12:00 68 09/04/17 12:00 98.2 68 13 124/65 (84) 95 (Nika Garrido) Review of Systems Neurologic: COMPLAINS OF: Headache (mild, stable), DENIES: Localized weakness, Paresthesias, Seizures (Nika Garrido) Physical Exam Alert and oriented. Conversing well. No acute distress CN: pupils equal, facial motor symmetric. gross eoms intact Neck : soft, supple Motor: moving all four extremities 5/5 Sensory: reports intact to light touch x 4 (Nika Garrido) He is alert, awake and oriented to time, place and person. Speech is fluent. Higher cognitive functions are normal. Cranial nerve examination demonstrates the pupils to be equal, round, and reactive to light. Extra-ocular movements are intact. Facial motor and sensory function are normal and symmetrical. Gross hearing is intact, bilaterally. The uvula is midline and elevates symmetrically with the soft palate. Sternocleidomastoid and trapezius muscles have normal and symmetrical strength. Other cranial nerves are intact. Neck is soft and supple. Cervical spine has a full range of motion in anterior flexion, extension, lateral bending, and rotation without pain. There is no tenderness to palpation to the spinous processes or paraspinal muscles. Muscle testing reveals normal bulk and tone overall without rigidity, spasticity , fasciculations, or atrophy. Muscle strength is 5/5 in all muscle groups of both upper extremities including deltoid, biceps, triceps, brachioradialis, wrist extension and residential worker. In the lower extremities, strength is 5/5 in both iliopsoas, quadriceps, hamstrings, plantar flexion, dorsiflexion, and extensor hallicus longus. Sensory examination is intact to light touch and sharp/dull discrimination in both the upper and lower extremities, symmetrically. Deep tendon reflexes are 2+ and symmetrical in the biceps, triceps, and brachioradialis, bilaterally, in the upper extremities. In the lower extremities , the patellar and Achilles are 2+, bilaterally. There is a bilateral plantar flexion response. Hoffmanns sign is negative. There is no clonus or other abnormal reflexes noted. Cerebellar examination is intact to [id number] test, rapid rhythmic alternating motion. There is no dysmetria, dysdiadochokinesia, truncal ataxia, or tremor. (Wei Egan MD) Medications Current Medications Current Medications Medications (Trade) Dose Ordered Sig/Pavithra Route PRN Reason Start Time Stop Time Status Last Admin Dose Admin Sodium Chloride 1,000 ml @ 84 mls/hr [id number] IV 09/03/17 14:53 09/05/17 06:19 Sodium Chloride (NS Flush) 2 ml UNSCH PRN IV FLUSH FLUSH AFTER USING IV ACCESS 09/03/17 15:00 Sodium Chloride (NS Flush) 2 ml BID IV FLUSH 09/03/17 15:00 09/04/17 20:52 Acetaminophen (Tylenol) 650 mg Q6H PRN PO FEVER >101F 09/03/17 15:00 Morphine Sulfate (Morphine Inj) 2 mg Q2H PRN IV PUSH breakthrough pain 6 TO 10 09/03/17 15:00 09/03/17 19:40 Pantoprazole Sodium (Protonix Inj) 40 mg DAILY IV PUSH 09/03/17 15:00 09/05/17 08:23 Ondansetron HCl (Zofran Inj) 4 mg Q6H PRN IV PUSH NAUSEA OR VOMITING 09/03/17 15:00 09/04/17 17:44 Miscellaneous Information 1 Q361D XX 09/03/17 15:00 09/03/17 15:00 Chlorhexidine Gluconate (Chlorhexidine 2% Cloth) 3 pack Taper DAILY@04 TOP 09/04/17 04:00 08/31/18 03:59 Chlorhexidine Gluconate (Chlorhexidine 2% Cloth) 3 pack UNSCH PRN TOP HYGIENIC CARE 09/03/17 15:00 Lorazepam (Ativan Inj) 1 mg Q1H PRN IV PUSH SEIZURES 09/03/17 17:00 Docusate Sodium (Colace) 100 mg BID PO 09/03/17 21:00 09/05/17 08:23 Magnesium Hydroxide (Milk Of Magnesia Liq) 30 ml DAILY PRN PO CONSTIPATION 09/03/17 17:00 Al Hydrox/Mg Hydrox/Simethicone (Mag-Al Plus Susp Liq) 30 ml Q6H PRN PO DYSPEPSIA 09/03/17 17:00 Promethazine HCl (Phenergan Inj) 25 mg Q4H PRN IM NAUSEA OR VOMITING 09/03/17 17:00 Oxycodone/ Acetaminophen (Percocet 5-325 Mg) 1 tab Q4H PRN PO PAIN SCALE 1 TO 5 09/03/17 17:00 Oxycodone/ Acetaminophen (Percocet 5-325 Mg) 2 tab Q4H PRN PO PAIN SCALE 6 TO 10 09/03/17 17:00 09/05/17 08:26 Labetalol HCl (Trandate Inj) 10 mg Q1H PRN IV PUSH SYS BP GREATER THAN 170 MMHG 09/03/17 17:00 Clonidine (Catapres) 0.1 mg Q6H PRN PO SYS BP GREATER THAN 170 MMHG 09/03/17 17:00 (Nika Garrido) Current Medications Current Medications Sodium Chloride (NS Flush) 2 ml UNSCH PRN IVF FLUSH AFTER USING IV ACCESS; Start 09/03/17 at 12:15; Stop 09/03/17 at 15:41; Status DC Sodium Chloride 1,000 ml @ 1,000 mls/hr Q1H ONCE IV Last administered on 09/03t 12:33; Start 09/03/17 at 12:09; Stop 09/03/17 at 13:08; Status DC Ondansetron HCl (Zofran Inj) 4 mg ONCE ONCE IVP Last administered on 12:34; Start 09/03/17 at 12:15; Stop 09/03/17 at 12:16; Status DC Morphine Sulfate (Morphine Inj) 4 mg ONCE ONCE IV PUSH Last administered on 12:33; Start 09/03/17 at 12:15; Stop 09/03/17 at 12:16; Status DC Sodium Chloride 1,000 ml @ 84 mls/hr [id number] IV Last administered on 02:12; Start 09/03/17 at 14:53; Stop 09/06/17 at 13:05; Status DC Sodium Chloride (NS Flush) 2 ml UNSCH PRN IV FLUSH FLUSH AFTER USING IV ACCESS ; Start 09/03/17 at 15:00 Sodium Chloride (NS Flush) 2 ml BID IV FLUSH Last administered on 09/04/17 20: 52; Start 09/03/17 at 15:00 Acetaminophen (Tylenol) 650 mg Q6H PRN PO FEVER >101F; Start 09/03/17 at 15:00 Morphine Sulfate (Morphine Inj) 2 mg Q2H PRN IV PUSH breakthrough pain 6 TO 10 Last administered on 09/03/17 19:40; Start 09/03/17 at 15:00 Pantoprazole Sodium (Protonix Inj) 40 mg DAILY IV PUSH Last administered on 08:23; Start 09/03/17 at 15:00 Ondansetron HCl (Zofran Inj) 4 mg Q6H PRN IV PUSH NAUSEA OR VOMITING Last administered on 09/04/17 17:44; Start 09/03/17 at 15:00 Miscellaneous Information 1 Q361D XX Last administered on 09/03/17 15:00; Start 09/03/17 at 15:00 Chlorhexidine Gluconate (Chlorhexidine 2% Cloth) 3 pack Taper DAILY@04 TOP ; Start 09/04/17 at 04:00; Stop 08/31/18 at 03:59 Chlorhexidine Gluconate (Chlorhexidine 2% Cloth) 3 pack UNSCH PRN TOP HYGIENIC CARE; Start 09/03/17 at 15:00 Lorazepam (Ativan Inj) 1 mg Q1H PRN IV PUSH SEIZURES; Start 09/03/17 at 17:00 Docusate Sodium (Colace) 100 mg BID PO Last administered on 09/06/17 08:29; Start 09/03/17 at 21:00 Magnesium Hydroxide (Milk Of Magnesia Liq) 30 ml DAILY PRN PO CONSTIPATION Last administered on 09/05/17 18:32; Start 09/03/17 at 17:00 Al Hydrox/Mg Hydrox/Simethicone (Mag-Al Plus Susp Liq) 30 ml Q6H PRN PO DYSPEPSIA; Start 09/03/17 at 17:00 Promethazine HCl (Phenergan Inj) 25 mg Q4H PRN IM NAUSEA OR VOMITING; Start at 17:00 Oxycodone/ Acetaminophen (Percocet 5-325 Mg) 1 tab Q4H PRN PO PAIN SCALE 1 TO 5 Last administered on 09/06/17 08:29; Start 09/03/17 at 17:00 Oxycodone/ Acetaminophen (Percocet 5-325 Mg) 2 tab Q4H PRN PO PAIN SCALE 6 TO 10 Last administered on 09/05/17 08:26; Start 09/03/17 at 17:00 Labetalol HCl (Trandate Inj) 10 mg Q1H PRN IV PUSH SYS BP GREATER THAN 170 MMHG ; Start 09/03/17 at 17:00 Clonidine (Catapres) 0.1 mg Q6H PRN PO SYS BP GREATER THAN 170 MMHG; Start at 17:00 (Wei Egan MD) Medical Decision Making MDM Remarks 32 y/o male with 1. 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 Stable follow up CT head. 2. syncopal episode. (Nika Garrido) MDM Remarks Last 48 hours Impressions Carotid Artery Ultrasound 09/05/17 0000 Signed Impressions: Service Date/Time: Tuesday, September 05, 2017 16:39 - CONCLUSION: Normal. Arcadio Diaz MD (Wei Egan MD) Plan Plan Remarks neuro stable cont medical management clear to dc from NRS standpoint, f/u Dr. Amanda in 2 weeks with repeat head CT (Nika Garrido) Attending Statement As above cardiac workup in progress DC home when cleared br cardiologu The exam, history, and the medical decision-making described in the above note were completed with the assistance of the mid-level provider. I reviewed and agree with the findings presented. I attest that I had a [id number] encounter with the patient on the same day, and personally performed and documented my assessment and findings in the medical record. (Wei Egan MD) Nika Garrido Sep 05, 2017 11:31 Wei Egan MD Sep 06, 2017 16:57
--- NOTE | 2017-09-05 17:39 | MB ---
cc: TREVER BAILON M.D. DATE OF CONSULTATION: 09/05/2017. HISTORY OF PRESENT ILLNESS: Tamar is a very pleasant 32-year-old gentleman who had a syncopal event prior to admission. He is a student at [employer]. He was studying for final exams and drinking a lot of caffeine and working out a lot. He noted a six pound weight loss the week prior to admission. He woke up at approximately three o'clock in the morning to urinate. He had a syncopal event with no prodrome. He ended up having significant head trauma with subdural hematoma and nondisplaced skull fracture associated with headache and nausea and vomiting. He has had some heart rates as low as 51 while sleeping. Otherwise no significant bradyarrhythmia. He does work out. He typically runs 40 minutes on a treadmill. Otherwise he is healthy in the past. PAST MEDICAL HISTORY: No significant past medical history. His past medical history is as per the history of present illness. REVIEW OF SYSTEMS: A further review of systems is negative for any chest pain, fever or chills, cough, GI or bleeding, paroxysmal nocturnal dyspnea, orthopnea, and he has no prior history of syncope. ALLERGIES: NONE. SOCIAL HISTORY: Denies tobacco or alcohol use. CURRENT MEDICATIONS: 1. Colace 100 twice a day. 2. Pantoprazole 40 IV daily. PHYSICAL EXAMINATION: VITAL SIGNS: Pulse ranging between 50 and 69, blood pressure 130/61, respiratory rate 20. Saturations 96% on room air. GENERAL: He is alert and oriented times three and in no acute distress. NECK: The neck is supple. No jugular venous distention. No bruits. CARDIOVASCULAR EXAM: S1-S2. No murmurs, rubs or gallops. LUNGS: Clear to auscultation bilaterally. ABDOMEN: The abdomen is soft, nontender and nondistended with positive bowel sounds. EXTREMITIES: No lower extremity edema. LABORATORY DATA: White count 13.7, hemoglobin 13.9, hematocrit 40.1, platelet count 338. Sodium 140, potassium 3.8, chloride 106, bicarb 29.3, BUN 7, creatinine 0.85. On admission, his glucose was 123. INR was 1.0. Toxicology was negative. EKGS: EKG shows normal sinus rhythm at 87 beats per minute with nonspecific S-T-T wave changes. Q-T interval is normal. DIAGNOSIS: He has the following diagnoses: 1. Syncope with no prodrome. 2. Dehydration. 3. Intravascular volume depletion. 4. Skull fracture 5. Subdural hematoma. DISCUSSION: The patient's history suggests intravascular volume depletion and high vagal tone possibly bradyarrhythmia while urinating at night. There is no other obvious evidence of significant conduction delay on his EKG or telemetry. Nevertheless, I will still order a carotid ultrasound and 2-D echocardiogram. Continue telemetry monitoring. His bradycardia may also be exacerbated by increased intracranial pressure as well. Will continue to follow and follow up his carotid ultrasound and 2-d echocardiogram. The subdural hematoma is being monitored by Dr. Hernan Amanda and Dr. Elias Munguia. MD MALLORY Uribe/DONNA /4:58 PM /5:24 PM
--- NOTE | 2017-09-05 17:56 | RADRPT ---
EXAM DATE/TIME: 09/05/2017 16:39 [facility] COMPARISON: No previous studies available for comparison. INDICATIONS : Syncope. MEDICAL HISTORY : Headache. Vomiting. SURGICAL HISTORY : Sciatic nerve surgery. ENCOUNTER: Initial ACUITY: 1 day PAIN SCORE: 0/10 LOCATION: Bilateral neck PEAK SYSTOLIC VELOCITIES (cm/sec): ICA/CCA RATIO: Right: 1.1 Left: 0.7 ICA: Right: 122 Left: 106 CCA: Right: 114 Left: 145 ECA: Right: 128 Left: 145 VERTEBRAL: Right: 42 antegrade Left: 55 antegrade Elevated flow velocities and ICA/CCA ratios have been found to correlate with increased degrees of vessel stenosis, calculated as percentage of diameter relative to a normal segment of distal ICA/CCA FINDINGS: RIGHT CAROTID: No significant stenosis is visualized. The waveforms are within normal limits. LEFT CAROTID: No significant stenosis is visualized. The waveforms are within normal limits. VERTEBRAL ARTERIES: Antegrade flow is seen in both vertebral arteries. MISCELLANEOUS: None. CONCLUSION: Normal. Arcadio Diaz MD on September 05, 2017 at 17:52 Board Certified Radiologist. This report was verified electronically.
[2017-09-06] VITALS (7 sets, daily range): BP systolic 114–127; BP diastolic 57–81; PULSE 50–82; RESP 16–20; TEMP 97.2–98.3; O2SAT 95–97
[2017-09-06] MEDS: SODIUM CHLOR 0.9% 1000 ML INJ 1,000 ML IV SCH (02:12)
[2017-09-06] MEDS: CHLORHEXIDINE GLUCONATE 2 % 1 PACK (2 CLOTHS) TOP SCH (03:03)
[2017-09-06] MEDS: oxyCODONE/ACETAMINOPHEN 5 MG/325 MG TAB PO PRN (08:29)
[2017-09-06] MEDS: DOCUSATE SODIUM 100 MG CAP PO SCH (08:29)
[2017-09-06] MEDS: SODIUM CHLORIDE 0.9% FLUSH 10 ML FLUSH IV FLUSH SCH (09:00)
[2017-09-06] MEDS: PANTOPRAZOLE SODIUM 40 MG VIAL IV PUSH SCH (09:00)
--- NOTE | 2017-09-06 09:30 | PD.PN.STU ---
Subjective Remarks Patient reports to be feeling well today. No headache, lightheadedness, or palpitations. Objective Vitals Vital Signs Date Time Temp Pulse Resp B/P (MAP) Pulse Ox O2 Delivery O2 Flow Rate FiO2 09/06/17 04:00 98.3 54 18 118/57 (77) 97 09/06/17 00:00 97.2 82 20 127/81 (96) 97 09/05/17 20:00 98.3 61 20 125/68 (87) 96 09/05/17 16:51 99.2 69 20 130/61 (84) 96 09/05/17 12:20 82 09/05/17 11:47 99.3 59 20 122/67 (85) 97 I/O 09/05/17 09/05/17 09/05/17 09/06/17 09/06/17 09/06/17 06:59 14:59 22:59 06:59 14:59 22:59 Intake Total 1000 ml 600 ml 1000 ml Balance 1000 ml 600 ml 1000 ml Intake Oral 600 ml IV Total 1000 ml 1000 ml # Voids 4 1 8 # Bowel Movements 0 1 Result Diagram: 09/03/17 1230 09/04/17 0503 Imaging Last 48 hours Impressions Carotid Artery Ultrasound 09/05/17 0000 Signed Impressions: Service Date/Time: Tuesday, September 05, 2017 16:39 - CONCLUSION: Normal. Arcadio Diaz MD Objective Remarks GENERAL: Patient awake and alert, lying in bed in no acute distress. SKIN: Warm and dry. HEAD: Atraumatic. Normocephalic. EYES: Pupils equal and round. No scleral icterus. No injection or drainage. ENT: No nasal bleeding or discharge. Mucous membranes pink and moist. NECK: Trachea midline. No JVD. CARDIOVASCULAR: Regular rate and rhythm. RESPIRATORY: No accessory muscle use. Clear to auscultation. Breath sounds equal bilaterally. GASTROINTESTINAL: Abdomen soft, non-tender, nondistended. Hepatic and splenic margins not palpable. MUSCULOSKELETAL: Extremities without clubbing, cyanosis, or edema. No obvious deformities. NEUROLOGICAL: Awake and alert. No obvious cranial nerve deficits. Motor grossly within normal limits. Normal speech. PSYCHIATRIC: Appropriate mood and affect; insight and judgment normal. Medications and IVs Current Medications Sodium Chloride (NS Flush) 2 ml UNSCH PRN IVF FLUSH AFTER USING IV ACCESS; Start 09/03/17 at 12:15; Stop 09/03/17 at 15:41; Status DC Sodium Chloride 1,000 ml @ 1,000 mls/hr Q1H ONCE IV Last administered on 09/03 12:33; Start 09/03/17 at 12:09; Stop 09/03/17 at 13:08; Status DC Ondansetron HCl (Zofran Inj) 4 mg ONCE ONCE IVP Last administered on 12:34; Start 09/03/17 at 12:15; Stop 09/03/17 at 12:16; Status DC Morphine Sulfate (Morphine Inj) 4 mg ONCE ONCE IV PUSH Last administered on 12:33; Start 09/03/17 at 12:15; Stop 09/03/17 at 12:16; Status DC Sodium Chloride 1,000 ml @ 84 mls/hr [id number] IV Last administered on 02:12; Start 09/03/17 at 14:53 Sodium Chloride (NS Flush) 2 ml UNSCH PRN IV FLUSH FLUSH AFTER USING IV ACCESS ; Start 09/03/17 at 15:00 Sodium Chloride (NS Flush) 2 ml BID IV FLUSH Last administered on 09/04/17 20: 52; Start 09/03/17 at 15:00 Acetaminophen (Tylenol) 650 mg Q6H PRN PO FEVER >101F; Start 09/03/17 at 15:00 Morphine Sulfate (Morphine Inj) 2 mg Q2H PRN IV PUSH breakthrough pain 6 TO 10 Last administered on 09/03/17 19:40; Start 09/03/17 at 15:00 Pantoprazole Sodium (Protonix Inj) 40 mg DAILY IV PUSH Last administered on 08:23; Start 09/03/17 at 15:00 Ondansetron HCl (Zofran Inj) 4 mg Q6H PRN IV PUSH NAUSEA OR VOMITING Last administered on 09/04/17 17:44; Start 09/03/17 at 15:00 Miscellaneous Information 1 Q361D XX Last administered on 09/03/17 15:00; Start 09/03/17 at 15:00 Chlorhexidine Gluconate (Chlorhexidine 2% Cloth) 3 pack Taper DAILY@04 TOP ; Start 09/04/17 at 04:00; Stop 08/31/18 at 03:59 Chlorhexidine Gluconate (Chlorhexidine 2% Cloth) 3 pack UNSCH PRN TOP HYGIENIC CARE; Start 09/03/17 at 15:00 Lorazepam (Ativan Inj) 1 mg Q1H PRN IV PUSH SEIZURES; Start 09/03/17 at 17:00 Docusate Sodium (Colace) 100 mg BID PO Last administered on 09/06/17 08:29; Start 09/03/17 at 21:00 Magnesium Hydroxide (Milk Of Magnesia Liq) 30 ml DAILY PRN PO CONSTIPATION Last administered on 09/05/17 18:32; Start 09/03/17 at 17:00 Al Hydrox/Mg Hydrox/Simethicone (Mag-Al Plus Susp Liq) 30 ml Q6H PRN PO DYSPEPSIA; Start 09/03/17 at 17:00 Promethazine HCl (Phenergan Inj) 25 mg Q4H PRN IM NAUSEA OR VOMITING; Start at 17:00 Oxycodone/ Acetaminophen (Percocet 5-325 Mg) 1 tab Q4H PRN PO PAIN SCALE 1 TO 5 Last administered on 09/06/17 08:29; Start 09/03/17 at 17:00 Oxycodone/ Acetaminophen (Percocet 5-325 Mg) 2 tab Q4H PRN PO PAIN SCALE 6 TO 10 Last administered on 09/05/17 08:26; Start 09/03/17 at 17:00 Labetalol HCl (Trandate Inj) 10 mg Q1H PRN IV PUSH SYS BP GREATER THAN 170 MMHG ; Start 09/03/17 at 17:00 Clonidine (Catapres) 0.1 mg Q6H PRN PO SYS BP GREATER THAN 170 MMHG; Start at 17:00 A/P Assessment and Plan 32-year-old male admitted after a syncopal episode. He sustained a nondisplaced skull fracture and a subdural hematoma. Syncope and collapse: Per patient, he is not sleeping for days because of studying for exams. He woke up in the middle of the night, felt dizzy, and lost consciousness. - Telemetry reviewed. He has been bradycardic in the 50s with no observed pauses, changed from yesterday. - Cardiology following: Carotid U/S negative, awaiting echo Nondepressed skull fracture/subdural hematoma - Patient has been followed by neurosurgery. Repeat head CT and neurological exam has been stable. - Cleared from neurosurgical standpoint for discharge. - Pain control Ruben March M3 Sep 06, 2017 09:30
--- NOTE | 2017-09-06 10:30 | HHI.PR ---
Subjective Remarks Patient reports he is doing okay. Eager to go home. Objective Vitals Vital Signs Date Time Temp Pulse Resp B/P (MAP) Pulse Ox O2 Delivery O2 Flow Rate FiO2 09/06/17 08:00 98.0 58 16 122/68 (86) 95 09/06/17 04:00 98.3 54 18 118/57 (77) 97 09/06/17 00:00 97.2 82 20 127/81 (96) 97 09/05/17 20:00 98.3 61 20 125/68 (87) 96 09/05/17 16:51 99.2 69 20 130/61 (84) 96 09/05/17 12:20 82 09/05/17 11:47 99.3 59 20 122/67 (85) 97 I/O 09/05/17 09/05/17 09/05/17 09/06/17 09/06/17 09/06/17 07:00 15:00 23:00 07:00 15:00 23:00 Intake Total 1000 ml 600 ml 1000 ml Balance 1000 ml 600 ml 1000 ml Intake Oral 600 ml IV Total 1000 ml 1000 ml # Voids 4 1 8 # Bowel Movements 0 1 Result Diagram: 09/03/17 1230 09/04/17 0503 Objective Remarks GENERAL: This is a well-nourished, well-developed patient, in no apparent distress. HEENT: Mild tenderness to palpation over the parietal region on the right. CARDIOVASCULAR: Normal rate and regular rhythm without murmurs, gallops, or rubs. RESPIRATORY: Good respiratory efforts. Breath sounds equal and clear to auscultation bilaterally. GASTROINTESTINAL: Abdomen soft, non-tender, non-distended. Normal active bowel sounds MUSCULOSKELETAL: Extremities without cyanosis, or edema. NEURO: Alert & Oriented x4 to person, place, time, situation. Moves all ext x4 PSYCH: Appropriate mood and affect. A/P Problem List: (1) Syncope and collapse ICD Code: R55 - Syncope and collapse Status: Acute (2) Non-depressed skull fracture ICD Code: S02.91XA - Unspecified fracture of skull, initial encounter for closed fracture Status: Acute (3) Subdural hematoma ICD Code: I62.00 - Nontraumatic subdural hemorrhage, unspecified Status: Acute (4) Traumatic subdural hematoma ICD Code: S06.5X9A - Traumatic subdural hemorrhage with loss of consciousness of unspecified duration, initial encounter Status: Acute Assessment and Plan 32-year-old male admitted after a syncopal episode. He sustained a nondisplaced skull fracture and a subdural hematoma. Syncope and collapse: Per patient, he is not sleeping for days because of studying for exams. He woke up in the middle of the night, felt dizzy, and lost consciousness. - Telemetry reviewed. He has been bradycardic in the 40s.<1 second pauses. -Cardiology consulted who suggested this was likely a vasovagal event and volume depletion. Carotid ultrasound and 2-D echocardiogram ordered. - Patient can be discharged if carotid ultrasound and echo normal. Nondepressed skull fracture/subdural hematoma - Patient has been followed by neurosurgery. Repeat head CT and neurological exam has been stable. - Cleared from neurosurgical standpoint for discharge. - Pain control Discharge Planning Discharge once carotid ultrasound and echocardiogram results obtained. Discussed with RN to notify ultrasound and echo department. Problem Qualifiers (1) Non-depressed skull fracture: Qualified Codes: S02.91XA - Unspecified fracture of skull, initial encounter for closed fracture (2) Traumatic subdural hematoma: Qualified Codes: S06.5X0A - Traumatic subdural hemorrhage without loss of consciousness, initial encounter Chuyita Leyva MD Sep 06, 2017 10:30
--- NOTE | 2017-09-06 10:39 | PD.CARD.PN ---
Subjective Subjective Remarks alert in nad Objective Medications Current Medications Medications (Trade) Dose Ordered Sig/Pavithra Route Start Time Stop Time Status Last Admin Sodium Chloride 1,000 ml @ 84 mls/hr [id number] IV 09/03/17 14:53 09/06/17 02:12 (NS Flush) 2 ml UNSCH PRN IV FLUSH 09/03/17 15:00 (NS Flush) 2 ml BID IV FLUSH 09/03/17 15:00 09/04/17 20:52 (Tylenol) 650 mg Q6H PRN PO 09/03/17 15:00 (Morphine Inj) 2 mg Q2H PRN IV PUSH 09/03/17 15:00 09/03/17 19:40 (Protonix Inj) 40 mg DAILY IV PUSH 09/03/17 15:00 09/05/17 08:23 (Zofran Inj) 4 mg Q6H PRN IV PUSH 09/03/17 15:00 09/04/17 17:44 Miscellaneous Information 1 [id number] XX 09/03/17 15:00 09/03/17 15:00 (Chlorhexidine 2% Cloth) 3 pack Taper DAILY@04 TOP 09/04/17 04:00 08/31/18 03:59 (Chlorhexidine 2% Cloth) 3 pack UNSCH PRN TOP 09/03/17 15:00 (Ativan Inj) 1 mg Q1H PRN IV PUSH 09/03/17 17:00 (Colace) 100 mg BID PO 09/03/17 21:00 09/06/17 08:29 (Milk Of Magnesia Liq) 30 ml DAILY PRN PO 09/03/17 17:00 09/05/17 18:32 (Mag-Al Plus Susp Liq) 30 ml Q6H PRN PO 09/03/17 17:00 (Phenergan Inj) 25 mg Q4H PRN IM 09/03/17 17:00 (Percocet 5-325 Mg) 1 tab Q4H PRN PO 09/03/17 17:00 09/06/17 08:29 (Percocet 5-325 Mg) 2 tab Q4H PRN PO 09/03/17 17:00 09/05/17 08:26 (Trandate Inj) 10 mg Q1H PRN IV PUSH 09/03/17 17:00 (Catapres) 0.1 mg Q6H PRN PO 09/03/17 17:00 Vital Signs / I&O Vital Signs Date Time Temp Pulse Resp B/P (MAP) Pulse Ox O2 Delivery O2 Flow Rate FiO2 09/06/17 08:00 98.0 58 16 122/68 (86) 95 09/06/17 04:00 98.3 54 18 118/57 (77) 97 09/06/17 00:00 97.2 82 20 127/81 (96) 97 09/05/17 20:00 98.3 61 20 125/68 (87) 96 09/05/17 16:51 99.2 69 20 130/61 (84) 96 09/05/17 12:20 82 09/05/17 11:47 99.3 59 20 122/67 (85) 97 I/O 09/05/17 09/05/17 09/05/17 09/06/17 09/06/17 09/06/17 07:00 15:00 23:00 07:00 15:00 23:00 Intake Total 1000 ml 600 ml 1000 ml Balance 1000 ml 600 ml 1000 ml Intake Oral 600 ml IV Total 1000 ml 1000 ml # Voids 4 1 8 # Bowel Movements 0 1 Laboratory GENERAL: SKIN: Warm and dry. HEAD: Normocephalic. EYES: No scleral icterus. No injection or drainage. NECK: Supple, trachea midline. No JVD or lymphadenopathy. CARDIOVASCULAR: Regular rate and rhythm without murmurs, gallops, or rubs. RESPIRATORY: Breath sounds equal bilaterally. No accessory muscle use. GASTROINTESTINAL: Abdomen soft, non-tender, nondistended. MUSCULOSKELETAL: No cyanosis, or edema. BACK: Nontender without obvious deformity. No CVA tenderness. Assessment and Plan Problem List: (1) Subdural hematoma ICD Codes: I62.00 - Nontraumatic subdural hemorrhage, unspecified Status: Acute (2) Non-depressed skull fracture ICD Codes: S02.91XA - Unspecified fracture of skull, initial encounter for closed fracture Status: Acute (3) Syncope and collapse ICD Codes: R55 - Syncope and collapse Status: Acute (4) Traumatic subdural hematoma ICD Codes: S06.5X9A - Traumatic subdural hemorrhage with loss of consciousness of unspecified duration, initial encounter Status: Acute Code Status 1.) Syncope - suspect due to iv vol depletion and vagal reaction, f/u echo and carotid us, if wnl ok to dc from cv standpoint Problem Qualifiers (1) Non-depressed skull fracture: Qualified Codes: S02.91XA - Unspecified fracture of skull, initial encounter for closed fracture (2) Traumatic subdural hematoma: Qualified Codes: S06.5X0A - Traumatic subdural hemorrhage without loss of consciousness, initial encounter Salo Torres MD Sep 06, 2017 10:39
--- NOTE | 2017-09-06 11:06 | HHI.NSPN ---
(Nika Garrido) Note Status Status: Progress Note (Nika Garrido) Interval History Interval History 32-year-old gentleman who had reportedly a syncopal episode around 3 o'clock this morning when his in the bathroom and fell back and struck his head with positive loss of consciousness. Initially had complaints of had severe headaches and nausea and vomiting, although he relates at this point the headaches have improved and he is does not feel nauseous. Denies any numbness or paresthesias in the upper or lower extremities. No double vision or blurred vision. Was brought to [facility] and CT scan the head obtained reveals a right parietal occipital area of 7 mm of thickness of the subdural hemorrhage. There is also nondisplaced parietooccipital skull fracture noted. CT of the cervical spine does not reveal any fractures with maintained alignment. 09/04/17: Pt awake and alert. Complains of posterior headache. No n/v. No paresthesias. No weakness in extremities. 09/05/17: feeling well, stable mild headaches, no N/V, no new neuro complaints. requests to go home. 09/06/17: medicine awaiting cardiology clearance for discharge. no new neurological complaints, eager to go home. (Nika Garrido) Labs, Micro, & Vital Signs Results Date Time Temp Pulse Resp B/P (MAP) Pulse Ox O2 Delivery O2 Flow Rate FiO2 09/06/17 08:00 98.0 58 16 122/68 (86) 95 09/06/17 04:00 98.3 54 18 118/57 (77) 97 09/06/17 00:00 97.2 82 20 127/81 (96) 97 09/05/17 20:00 98.3 61 20 125/68 (87) 96 09/05/17 16:51 99.2 69 20 130/61 (84) 96 09/05/17 12:20 82 09/05/17 11:47 99.3 59 20 122/67 (85) 97 Constitutional Vital Signs Date Time Temp Pulse Resp B/P (MAP) Pulse Ox O2 Delivery O2 Flow Rate FiO2 09/06/17 08:00 98.0 58 16 122/68 (86) 95 09/06/17 04:00 98.3 54 18 118/57 (77) 97 09/06/17 00:00 97.2 82 20 127/81 (96) 97 09/05/17 20:00 98.3 61 20 125/68 (87) 96 09/05/17 16:51 99.2 69 20 130/61 (84) 96 09/05/17 12:20 82 09/05/17 11:47 99.3 59 20 122/67 (85) 97 (Nika Garrido) Physical Exam Alert and oriented. Pleasant. Conversing well. Resting comfortably in bed. CN: pupils equal, facial motor symmetric. gross eoms intact Neck : soft, supple Motor: moving all four extremities 5/5 Sensory: reports intact to light touch x 4 (Nika Garrido) Mr Esqueda is alert, awake and oriented to time, place and person. Speech is fluent. Cranial nerve examination: pupils to be equal, round and reactive to light. Extra-ocular movements are intact. Facial motor and sensory function are normal and symmetrical. Gross hearing appears intact. Sternocleidomastoid and trapezius muscles are symmetrical. Other cranial nerves are intact. Neck is soft and supple with a good range of motion without pain. Muscle strength is normal in all muscle groups of both upper and lower extremities. Sensory examination is intact to light touch and pin prick in both the upper and lower extremities. Deep tendon reflexes are symmetrical in both upper and lower extremities. There is a bilateral plantar flexion response. Cerebellar examination is unremarkable, without deficits. (Wei Egan MD) Medications Current Medications Current Medications Medications (Trade) Dose Ordered Sig/Pavithra Route PRN Reason Start Time Stop Time Status Last Admin Dose Admin Sodium Chloride 1,000 ml @ 84 mls/hr [id number] IV 09/03/17 14:53 09/06/17 02:12 Sodium Chloride (NS Flush) 2 ml UNSCH PRN IV FLUSH FLUSH AFTER USING IV ACCESS 09/03/17 15:00 Sodium Chloride (NS Flush) 2 ml BID IV FLUSH 09/03/17 15:00 09/04/17 20:52 Acetaminophen (Tylenol) 650 mg Q6H PRN PO FEVER >101F 09/03/17 15:00 Morphine Sulfate (Morphine Inj) 2 mg Q2H PRN IV PUSH breakthrough pain 6 TO 10 09/03/17 15:00 09/03/17 19:40 Pantoprazole Sodium (Protonix Inj) 40 mg DAILY IV PUSH 09/03/17 15:00 09/05/17 08:23 Ondansetron HCl (Zofran Inj) 4 mg Q6H PRN IV PUSH NAUSEA OR VOMITING 09/03/17 15:00 09/04/17 17:44 Miscellaneous Information 1 Q361D XX 09/03/17 15:00 09/03/17 15:00 Chlorhexidine Gluconate (Chlorhexidine 2% Cloth) 3 pack Taper DAILY@04 TOP 09/04/17 04:00 08/31/18 03:59 Chlorhexidine Gluconate (Chlorhexidine 2% Cloth) 3 pack UNSCH PRN TOP HYGIENIC CARE 09/03/17 15:00 Lorazepam (Ativan Inj) 1 mg Q1H PRN IV PUSH SEIZURES 09/03/17 17:00 Docusate Sodium (Colace) 100 mg BID PO 09/03/17 21:00 09/06/17 08:29 Magnesium Hydroxide (Milk Of Magnesia Liq) 30 ml DAILY PRN PO CONSTIPATION 09/03/17 17:00 09/05/17 18:32 Al Hydrox/Mg Hydrox/Simethicone (Mag-Al Plus Susp Liq) 30 ml Q6H PRN PO DYSPEPSIA 09/03/17 17:00 Promethazine HCl (Phenergan Inj) 25 mg Q4H PRN IM NAUSEA OR VOMITING 09/03/17 17:00 Oxycodone/ Acetaminophen (Percocet 5-325 Mg) 1 tab Q4H PRN PO PAIN SCALE 1 TO 5 09/03/17 17:00 09/06/17 08:29 Oxycodone/ Acetaminophen (Percocet 5-325 Mg) 2 tab Q4H PRN PO PAIN SCALE 6 TO 10 09/03/17 17:00 09/05/17 08:26 Labetalol HCl (Trandate Inj) 10 mg Q1H PRN IV PUSH SYS BP GREATER THAN 170 MMHG 09/03/17 17:00 Clonidine (Catapres) 0.1 mg Q6H PRN PO SYS BP GREATER THAN 170 MMHG 09/03/17 17:00 (Nika Garrido) Current Medications Current Medications Sodium Chloride (NS Flush) 2 ml UNSCH PRN IVF FLUSH AFTER USING IV ACCESS; Start 09/03/17 at 12:15; Stop 09/03/17 at 15:41; Status DC Sodium Chloride 1,000 ml @ 1,000 mls/hr Q1H ONCE IV Last administered on 09/03 12:33; Start 09/03/17 at 12:09; Stop 09/03/17 at 13:08; Status DC Ondansetron HCl (Zofran Inj) 4 mg ONCE ONCE IVP Last administered on 12:34; Start 09/03/17 at 12:15; Stop 09/03/17 at 12:16; Status DC Morphine Sulfate (Morphine Inj) 4 mg ONCE ONCE IV PUSH Last administered on 12:33; Start 09/03/17 at 12:15; Stop 09/03/17 at 12:16; Status DC Sodium Chloride 1,000 ml @ 84 mls/hr [id number] IV Last administered on 02:12; Start 09/03/17 at 14:53; Stop 09/06/17 at 13:05; Status DC Sodium Chloride (NS Flush) 2 ml UNSCH PRN IV FLUSH FLUSH AFTER USING IV ACCESS ; Start 09/03/17 at 15:00; Stop 09/06/17 at 18:45; Status DC Sodium Chloride (NS Flush) 2 ml BID IV FLUSH Last administered on 09/04/17 20: 52; Start 09/03/17 at 15:00; Stop 09/06/17 at 18:45; Status DC Acetaminophen (Tylenol) 650 mg Q6H PRN PO FEVER >101F; Start 09/03/17 at 15:00 ; Stop 09/06/17 at 18:45; Status DC Morphine Sulfate (Morphine Inj) 2 mg Q2H PRN IV PUSH breakthrough pain 6 TO 10 Last administered on 09/03/17 19:40; Start 09/03/17 at 15:00; Stop 09/06/17 at 18:45; Status DC Pantoprazole Sodium (Protonix Inj) 40 mg DAILY IV PUSH Last administered on 08:23; Start 09/03/17 at 15:00; Stop 09/06/17 at 18:45; Status DC Ondansetron HCl (Zofran Inj) 4 mg Q6H PRN IV PUSH NAUSEA OR VOMITING Last administered on 09/04/17 17:44; Start 09/03/17 at 15:00; Stop 09/06/17 at 18: 45; Status DC Miscellaneous Information 1 Q361D XX Last administered on 09/03/17 15:00; Start 09/03/17 at 15:00; Stop 09/06/17 at 18:45; Status DC Chlorhexidine Gluconate (Chlorhexidine 2% Cloth) 3 pack Taper DAILY@04 TOP ; Start 09/04/17 at 04:00; Stop 09/06/17 at 18:45; Status DC Chlorhexidine Gluconate (Chlorhexidine 2% Cloth) 3 pack UNSCH PRN TOP HYGIENIC CARE; Start 09/03/17 at 15:00; Stop 09/06/17 at 18:45; Status DC Lorazepam (Ativan Inj) 1 mg Q1H PRN IV PUSH SEIZURES; Start 09/03/17 at 17:00 ; Stop 09/06/17 at 18:45; Status DC Docusate Sodium (Colace) 100 mg BID PO Last administered on 09/06/17 08:29; Start 09/03/17 at 21:00; Stop 09/06/17 at 18:45; Status DC Magnesium Hydroxide (Milk Of Magnesia Liq) 30 ml DAILY PRN PO CONSTIPATION Last administered on 09/05/17 18:32; Start 09/03/17 at 17:00; Stop 09/06/17 at 18:45; Status DC Al Hydrox/Mg Hydrox/Simethicone (Mag-Al Plus Susp Liq) 30 ml Q6H PRN PO DYSPEPSIA; Start 09/03/17 at 17:00; Stop 09/06/17 at 18:45; Status DC Promethazine HCl (Phenergan Inj) 25 mg Q4H PRN IM NAUSEA OR VOMITING; Start at 17:00; Stop 09/06/17 at 18:45; Status DC Oxycodone/ Acetaminophen (Percocet 5-325 Mg) 1 tab Q4H PRN PO PAIN SCALE 1 TO 5 Last administered on 09/06/17 08:29; Start 09/03/17 at 17:00; Stop 09/06/17 at 18:45; Status DC Oxycodone/ Acetaminophen (Percocet 5-325 Mg) 2 tab Q4H PRN PO PAIN SCALE 6 TO 10 Last administered on 09/05/17 08:26; Start 09/03/17 at 17:00; Stop at 18:45; Status DC Labetalol HCl (Trandate Inj) 10 mg Q1H PRN IV PUSH SYS BP GREATER THAN 170 MMHG ; Start 09/03/17 at 17:00; Stop 09/06/17 at 18:45; Status DC Clonidine (Catapres) 0.1 mg Q6H PRN PO SYS BP GREATER THAN 170 MMHG; Start at 17:00; Stop 09/06/17 at 18:45; Status DC (Wei Egan MD) Medical Decision Making MDM Remarks 32 y/o male with 1. 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 Stable follow up CT head. 2. syncopal episode. stable neurological exam (Nika Garrido) MDM Remarks Last 48 hours Impressions Carotid Artery Ultrasound 09/05/17 0000 Signed Impressions: Service Date/Time: Tuesday, September 05, 2017 16:39 - CONCLUSION: Normal. Arcadio Diaz MD (Wei Egan MD) Plan Plan Remarks cardiology amos in progress, cont medical management clear to dc from NRS standpoint, f/u Dr. Amanda in 2 weeks with repeat head CT (Nika Garrido) Attending Statement As per above Discussed with dr Torres Cleared for discharge (Wei Egan MD) Nika Garrido Sep 06, 2017 11:06 Wei Egan MD Sep 06, 2017 19:58
--- NOTE | 2017-09-06 13:06 | HHI.DCPOC ---
Discharge Care Plan Diagnosis: (1) Syncope and collapse (2) Non-depressed skull fracture (3) Traumatic subdural hematoma Goals to Promote Your Health * To prevent worsening of your condition and complications * To maintain your health at the optimal level Directions to Meet Your Goals Take your medications as prescribed Follow your dietary instruction Follow activity as directed Keep your appointments as scheduled Take your immunizations and boosters as scheduled If your symptoms worsen call your PCP, if no PCP go to Urgent Care Center or Emergency Room Smoking is Dangerous to Your Health. Avoid second hand smoke Call the 24-hour hour crisis hotline for domestic abuse at Chuyita Leyva MD Sep 06, 2017 13:06
--- NOTE | 2017-09-06 15:28 | ECHRPT ---
Indication: CVA/TIA CONCLUSIONS Normal left ventricular size. Wall thickness is normal. The left ventricular systolic function is normal with an estimated ejection fraction in the range of 55-60%. There is trace tricuspid valve regurgitation. BP: 118 / 57 HR: 54 Rhythm: Sinus MEASUREMENTS (Male / Female) Normal Values Technical Quality:Fair 2D ECHO LV Diastolic Diameter PLAX 4.6 cm 4.2 - 5.9 / 3.9 - 5.3 cm LV Systolic Diameter PLAX 3.4 cm IVS Diastolic Thickness 0.8 cm 0.6 - 1.0 / 0.6 - 0.9 cm LVPW Diastolic Thickness 0.8 cm 0.6 - 1.0 / 0.6 - 0.9 cm LV Relative Wall Thickness 0.3 RV Internal Dim ED PLAX 2.6 cm LVOT Diameter 2.5 cm Aortic Root Diameter 3.3 cm LA Systolic Diameter LX 2.6 cm 3.0 - 4.0 / 2.7 - 3.8 cm M-MODE AV Cusp Separation MM 2.6 cm DOPPLER AV Peak Velocity 124.0 cm/s AV Peak Gradient 6.2 mmHg AV Mean Gradient 3.0 mmHg AV Velocity Time Integral 23.6 cm LVOT Peak Velocity 96.3 cm/s LVOT Peak Gradient 3.7 mmHg LVOT Velocity Time Integral 19.6 cm LVOT Cardiac Index 2769.5 cm/minm AV Area Cont Eq vti 4.1 cm AV Area Cont Eq pk 3.8 cm Mitral E Point Velocity 67.6 cm/s Mitral A Point Velocity 53.3 cm/s Mitral E to A Ratio 1.3 LV E' Lateral Velocity 11.1 cm/s Mitral E to LV E' Lateral Ratio 6.1 LV E' Septal Velocity 8.9 cm/s Mitral E to LV E' Septal Ratio 7.6 TR Peak Velocity 212.0 cm/s TR Peak Gradient 18.0 mmHg Right Atrial Pressure 10.0 mmHg Pulmonary Artery Systolic Pressu 28.0 mmHg Right Ventricular Systolic Press 28.0 mmHg PV Peak Velocity 61.7 cm/s PV Peak Gradient 1.5 mmHg FINDINGS LEFT VENTRICLE Normal left ventricular size. Wall thickness is normal. The left ventricular systolic function is normal with an estimated ejection fraction in the range of 55-60%. RIGHT VENTRICLE Normal right ventricular size and systolic function. LEFT ATRIUM The left atrial size is normal. RIGHT ATRIUM The right atrial size is normal. ATRIAL SEPTUM Normal atrial septal thickness without atrial level shunting by limited color doppler interrogation. AORTA The aortic root and proximal ascending aorta are normal in size on limited imaging. MITRAL VALVE Structurally normal mitral valve. No mitral valve stenosis or regurgitation. AORTIC VALVE Trileaflet aortic valve. No aortic valve stenosis or regurgitation. TRICUSPID VALVE There is trace tricuspid valve regurgitation. PULMONARY VALVE No pulmonary valve regurgitation or stenosis. VESSELS The inferior vena cava is normal in size. PERICARDIUM No pericardial effusion. Brent Montez MD (Electronically Signed) Final Date:06 September 2017 15:27
== END 2017-09-06 18:45 | disposition home or self-care (01) | DRG 84 ==
LOC: NEPD 11:28 → NEDA 14:51 → OBSVTOIN 15:05 → N03A 15:39 → N05A 09-05 00:04
PROVIDERS: ADMIT Family Medicine; ATTEND Family Medicine
DX: S06.5X9A Traumatic subdural hemorrhage with loss of consciousness of unspecified duration, initial encounter (principal); R55 Syncope and collapse; S02.91XA Unspecified fracture of skull, initial encounter for closed fracture; E86.0 Dehydration; W19.XXXA Unspecified fall, initial encounter; Y92.002 Bathroom of unspecified non-institutional (private) residence as the place of occurrence of the external cause
CPT/HCPCS: 70450; 72125; 80048; 80307; 83735; 85025; 85610; 85730; 87641; 93005; 93306; 93880; 94150; 96361; 96374; 96375; C9113; J2270; J2405; J7030